=== PATIENT | female | born 1985 ===

== ENCOUNTER 2016-09-22 07:02 | Outpatient (RCR) | payer BC ==
[~2016-09-22] VITALS: Ht 30.5 cm; Wt 0.5 kg
[2016-09-22] MEDS ORDERED: Ketorolac 60mg Inj ONE (07:03)
[2016-09-22] MEDS ORDERED: Methohexital Sodium Syr 100mg/10ml IVP ONE (07:03)
[2016-09-22] MEDS ORDERED: Succinylcholine 20mg/ml 10ml vial ONE (07:03)
[2016-09-22] MEDS ORDERED: NS 550ML IV ONE (07:03)
== END 2016-10-05 | disposition home or self-care (01) ==
LOC: ECT 07:02
DX: F31.5 Bipolar disorder, current episode depressed, severe, with psychotic features (principal)
CPT/HCPCS: 90870; J0330; J2405; J7040

== ENCOUNTER 2016-10-27 05:18 | Outpatient (RCR) | payer BC ==
[~2016-10-27] VITALS: Ht 167.6 cm; Wt 95.7 kg
[2016-11-01] MEDS ORDERED: Midazolam 2mg/2ml Inj ONE ×2 (12:00→12:03)
[2016-11-01] MEDS ORDERED: Succinylcholine 20mg/ml 10ml vial ONE (12:00)
[2016-11-01] MEDS ORDERED: Methohexital Sodium Syr 100mg/10ml IVP ONE (12:00)
[2016-11-01] MEDS ORDERED: NS 550ML IV ONE (12:00)
[2016-11-01] MEDS ORDERED: Ketorolac 30mg Inj ONE (12:00)
[2016-11-01] MEDS ORDERED: Midazolam 2mg/2ml Inj IVP PRN (12:30)
== END 2016-11-02 | disposition home or self-care (01) ==
LOC: ECT 05:18
DX: F31.5 Bipolar disorder, current episode depressed, severe, with psychotic features (principal)
CPT/HCPCS: 90870; J0330; J1885; J2250; J2405; J7040

== ENCOUNTER 2016-12-13 08:26 | Outpatient (RCR) | payer BC ==
[~2016-12-13] VITALS: Ht 167.6 cm; Wt 95.7 kg
[2016-12-13] MEDS ORDERED: Midazolam 2mg/2ml Inj ONE (08:27)
[2016-12-13] MEDS ORDERED: Ketorolac 60mg Inj ONE (08:27)
[2016-12-13] MEDS ORDERED: Succinylcholine 20mg/ml 10ml vial ONE (08:27)
[2016-12-13] MEDS ORDERED: Methohexital Sodium Syr 100mg/10ml IVP ONE (08:27)
[2016-12-13] MEDS ORDERED: NS 550ML IV ONE (08:27)
[2016-12-13] MEDS ORDERED: Atropine Sulfate 0.4mg/ml inj IVP PRN (17:30)
== END 2017-01-02 | disposition home or self-care (01) ==
LOC: ECT 08:26
DX: F31.5 Bipolar disorder, current episode depressed, severe, with psychotic features (principal)
CPT/HCPCS: 90870; J0330; J2250; J2405; J7040

== ENCOUNTER 2017-01-26 05:03 | Outpatient (RCR) | payer BC ==
[~2017-01-26] VITALS: Ht 167.6 cm; Wt 95.7 kg
[2017-02-02] MEDS ORDERED: Ketorolac 60mg Inj ONE (07:00)
[2017-02-02] MEDS ORDERED: Methohexital Sodium Syr 100mg/10ml IVP ONE (07:00)
[2017-02-02] MEDS ORDERED: NS 550ML IV ONE (07:00)
[2017-02-02] MEDS ORDERED: Succinylcholine 20mg/ml 10ml vial ONE (07:00)
[2017-02-02] MEDS ORDERED: Midazolam 2mg/2ml Inj ONE (07:00)
== END 2017-02-02 | disposition home or self-care (01) ==
LOC: ECT 05:03
DX: F31.5 Bipolar disorder, current episode depressed, severe, with psychotic features (principal)
CPT/HCPCS: 90870; J0330; J2250; J2405; J7040

== ENCOUNTER 2017-03-28 05:08 | Outpatient (RCR) | payer BC | END 2017-04-04 | disposition home or self-care (01) | LOC: ECT 05:08 | DX: F31.5 Bipolar disorder, current episode depressed, severe, with psychotic features (principal) ==